=== PATIENT | female | born 1980 | race Caucasian/White ===

== ENCOUNTER 2024-09-06 10:28 | Emergency (ER) | payer OTHER ==
[2024-09-06 11:25] LABS: EPI CELLS 15 /uL (0-25.1); HYALINE CASTS 1 /uL (0-3.1); PH,URINE 5.5 (5.0-8.0); URINE APPEARANCE CLEAR; URINE BACTERIA 558 /uL (0-1359); URINE BILIRUBIN NEGATIVE (NEGATIVE); URINE COLOR YELLOW; URINE GLUCOSE (UA) NEGATIVE (NEGATIVE); URINE KETONE NEGATIVE (NEGATIVE); URINE LEUK ESTERASE 2+ (NEGATIVE); URINE NITRITE NEGATIVE (NEGATIVE); URINE PROTEIN NEGATIVE (NEGATIVE); URINE RBC 13 /uL (0-23.9); URINE UROBILINOGEN 0.2 mg/dL (0.2-1.0); URINE WBC 235 /uL (0-25.8)
[2024-09-06] MEDS ORDERED: CEFTRIAXONE 1 GM/50 ML BAG ONE (11:36)
[2024-09-06 11:39] LABS: BASO % 0.4 % (0-2.0); EOS % 0.8 % (0-4.5); HEMATOCRIT 36.1 % (32.4-45.2); HEMOGLOBIN 12.2 GM/dL (10.7-15.3); MCH 27.5 pg (25.7-33.7); MCHC 33.8 g/dl (32.0-36.0); MEAN CELL VOLUME 81.6 fl (80-96); MEAN PLT VOLUME 6.6 fl (7.5-11.1); MONO % 5.6 % (3.8-10.2); NEUT % 72.2 % (42.8-82.8); PLATELET COUNT 355 10^3/uL (134-434); RBC 4.43 M/mm3 (3.60-5.2); RDW 13.9 % (11.6-15.6); WHITE BLOOD COUNT 5.1 K/mm3 (4.0-10.0)
[2024-09-06 12:10] LABS: ALBUMIN 3.4 g/dl (3.4-5.0); BLOOD UREA NITROGEN 11.3 mg/dL (7-18); CALCIUM 9.2 mg/dL (8.5-10.1)
[2024-09-06] MEDS ORDERED: KETOROLAC TROMETHAMINE 15 MG/ML VIAL ONE (12:11)
[2024-09-06 12:14] LABS: CREATININE 0.6 mg/dL (0.55-1.3)
[2024-09-06 12:15] LABS: BILIRUBIN,TOTAL 0.4 mg/dL (0.2-1)
[2024-09-06] MEDS: KETOROLAC TROMETHAMINE 15 MG/ML VIAL IVPUSH ONE (12:23)
[2024-09-06 12:26] VITALS: BP 109/68; PULSE 78; RESP 18; TEMP 97.6; BMI 29.0
[2024-09-06 13:05] LABS: HIV INTERPRETATION NEGATIVE (NEGATIVE)
== END 2024-09-06 12:46 | disposition home or self-care (01) ==
LOC: JER 10:28
PROC: 3E03329 Introduction of Other Anti-infective into Peripheral Vein, Percutaneous Approach (ICD-10-PCS; principal; 2024-09-06)
PROC: 3E0333Z Introduction of Anti-inflammatory into Peripheral Vein, Percutaneous Approach (ICD-10-PCS; 2024-09-06)
DX: N12 Tubulo-interstitial nephritis, not specified as acute or chronic (principal); R10.31 Right lower quadrant pain; R30.0 Dysuria; R50.9 Fever, unspecified; R63.0 Anorexia; R11.2 Nausea with vomiting, unspecified; R53.81 Other malaise
CPT/HCPCS: 36415; 80053; 81003; 84703; 85025; 86803; 87086; 87389; 99284-25

== ENCOUNTER 2024-09-15 23:17 | Emergency (ER) | payer OTHER ==
[2024-09-15 23:25] VITALS: BP 146/84; PULSE 76; RESP 18; TEMP 98.2; BMI 29.0
[2024-09-16] MEDS ORDERED: LIDOCAINE 4% PATCH TP ONE (00:17)
[2024-09-16] MEDS ORDERED: METHOCARBAMOL 500 MG TABLET ONE (00:17)
[2024-09-16] MEDS ORDERED: ACETAMINOPHEN 500 MG TABLET (FP) ONE (00:19)
[2024-09-16] MEDS: METHOCARBAMOL 500 MG TABLET PO ONE (00:30)
[2024-09-16] MEDS: ACETAMINOPHEN 500 MG TABLET (FP) PO ONE (00:30)
[2024-09-16] MEDS: METHOCARBAMOL 750 MG TABLET PO ONE (00:31)
[2024-09-16] MEDS: METHOCARBAMOL 750 MG TAB PO ONE (00:31)
[2024-09-16] MEDS: LIDOCAINE 4% PATCH TP ONE (00:31)
[2024-09-16] MEDS ORDERED: KETOROLAC TROMETHAMINE 30 MG/1 ML VIAL ONE (02:01)
[2024-09-16] MEDS: KETOROLAC TROMETHAMINE 30 MG/1 ML VIAL IM ONE (02:09)
[2024-09-16] MEDS ORDERED: LIDOCAINE PATCH REMOVAL MC ONE (12:00)
== END 2024-09-16 02:44 | disposition home or self-care (01) ==
LOC: JER 23:17
PROC: 3E0133Z Introduction of Anti-inflammatory into Subcutaneous Tissue, Percutaneous Approach (ICD-10-PCS; principal; 2024-09-16)
DX: M54.2 Cervicalgia (principal); R11.0 Nausea; R42 Dizziness and giddiness; X50.1XXA Overexertion from prolonged static or awkward postures, initial encounter; Y93.J1 Activity, piano playing
CPT/HCPCS: 99284-25